=== PATIENT | male | born 1980 | race Caucasian/White ===

== ENCOUNTER 2018-12-19 12:51 | Emergency (ER) | payer OTHER ==
[2018-12-19 12:59] VITALS: RESP 18
--- NOTE | 2018-12-19 14:31 | C.PDOC ---
History Of Present Illness Patient is a 38 year old male with a past medical history of ulcerative colitis s/p resection, who presents to the ED with chest pain. He states hes had diffuse chest pain (sometimes mid sternum, sometimes b/l) intermittently for 3 weeks; he states it feels like a "quick pressure or sharpness" lasting 2-3 seconds, and then resolves on its own. He states he has about 5 episodes per week. He says sometimes the pain is worse with eating at night and when using his vaporizer, but otherwise, he cannot identify what causes his discomfort. He has not tried anything for his symptoms as they resolve on its own. He has had a similar ep isode a few years ago and was given Pepcid. He also says his arm fell asleep yesterday and he was clammy, but that only last a few seconds and then resolved on it own. He denies heavy lifting or trauma. The patient currently denies having chest pain at this time; he also denies palpitations, dyspnea, cough, nausea, vomiting, abdominal pain, fevers, headaches, dizziness, changes in vision, dysuria, hematuria, diarrhea, constipation, leg pain/swelling. PMD: Dr. Thanh Leggett PMHx: UC s/p resection; seasonal allergies SurgHx: colon resection 1999; left wrist fx SocHx: deneis tobacco use; drinks on weekends (6 beers); smokes (vapes) marijuana several times per week. FamHx: FAther- DM, Mother- Afib, Grandmother- lung cancer Allergies: NKDA Medciations: Lotimax ophth solution daily <Gris Moreno - Last Filed: 12/19/18 16:29> <Cyndie Gonsales - Last Filed: 12/19/18 16:22> History Per: Patient History/Exam Limitations: no limitations Current Symptoms Are (Timing): Gone Quality: Sharp, Dull, Pressure Associated Symptoms: Diaphoresis. denies: Nausea, Dyspnea Exacerbating Factors: Other ("can't pinpoint") Alleviating Factors: None (resolves on its own) <Gris Moreno - Last Filed: 12/19/18 16:29> Time Seen by Provider: 12/19/18 13:55 Chief Complaint (Nursing): Chest Pain Past Medical History Vital Signs: Last Vital Signs Temp 98.8 F 12/19/18 12:56 Pulse 76 12/19/18 15:05 Resp 18 12/19/18 12:56 BP 135/82 12/19/18 15:05 Pulse Ox 100 12/19/18 16:19 - [facility] Procedures CL FX REDUC-RADIUS/ULNA (03/02/13) DIPHTHERIA TOXOID ADMIN (03/02/13) OTHER CAST APPLICATION (03/02/13) TETANUS TOXOID ADMINIST (03/02/13) <Cyndie Gonsales - Last Filed: 12/19/18 16:22> Vital Signs: Last Vital Signs Temp 98.8 F 12/19/18 12:56 Pulse 79 12/19/18 12:56 Resp 18 12/19/18 12:56 BP 134/90 12/19/18 12:56 Pulse Ox 100 12/19/18 12:56 - Medical History PMH: HTN - [facility] Procedures CL FX REDUC-RADIUS/ULNA (03/02/13) DIPHTHERIA TOXOID ADMIN (03/02/13) OTHER CAST APPLICATION (03/02/13) TETANUS TOXOID ADMINIST (03/02/13) Family History: Denies: NC, CAD - Social History Hx Tobacco Use: No Hx Alcohol Use: Yes Hx Substance Use: Yes - Immunization History Hx Tetanus Toxoid Vaccination: Yes Hx Influenza Vaccination: Yes Hx Pneumococcal Vaccination: No <Gris Moreno - Last Filed: 12/19/18 16:29> Review Of Systems Constitutional: Negative for: Fever, Chills Eyes: Negative for: Vision Change Cardiovascular: Negative for: Chest Pain, Palpitations, Light Headedness Respiratory: Negative for: Cough, Shortness of Breath, Pleuritic Pain Gastrointestinal: Negative for: Nausea, Vomiting, Abdominal Pain, Diarrhea, Constipation Genitourinary: Negative for: Dysuria, Frequency, Incontinence, Hematuria Neurological: Negative for: Weakness, Numbness, Headache, Dizziness <Gris Moreno - Last Filed: 12/19/18 16:29> Physical Exam - Physical Exam Appears: Non-toxic, No Acute Distress Skin: Normal Color, Warm, Dry Head: Normacephalic Eye(s): bilateral: Normal Inspection, PERRL, EOMI Oral Mucosa: Moist Neck: Normal ROM Chest: Symmetrical, No Tenderness Cardiovascular: Rhythm Regular, No Edema, No Murmur Respiratory: Normal Breath Sounds, No Accessory Muscle Use, No Rales, No Rhonchi, No Stridor Gastrointestinal/Abdominal: Normal Exam, Bowel Sounds, Soft, No Tenderness, No Distention, No Guarding Extremity: Normal ROM, No Tenderness, Pedal Edema (1+), No Calf Tenderness Extremity: Bilateral: Atraumatic, No Pedal Edema, Normal ROM Pulses: Left Dorsalis Pedis: Normal, Right Dorsalis Pedis: Normal Neurological/Psych: Oriented x3, Normal Speech, Normal Cognition, Normal Cranial Nerves <Gris Moreno - Last Filed: 12/19/18 16:29> ED Course And Treatment - Laboratory Results Result Diagrams: 12/19/18 15:15 12/19/18 15:15 Lab Results: Troponin I < 0.0120 ng/mL (0.00-0.120) 12/19/18 15:15 Total Bilirubin 1.9 mg/dL (0.2-1.3) H 12/19/18 15:15 AST 31 U/L (17-59) 12/19/18 15:15 ALT 45 U/L (21-72) 12/19/18 15:15 Alkaline Phosphatase 67 U/L (38-126) 12/19/18 15:15 Total Protein 7.3 g/dL (6.3-8.3) 12/19/18 15:15 Albumin 4.4 g/dL (3.5-5.0) 12/19/18 15:15 Globulin 2.8 gm/dL (2.2-3.9) 12/19/18 15:15 Albumin/Globulin Ratio 1.6 (1.0-2.1) 12/19/18 15:15 <Cyndie Gonsales - Last Filed: 12/19/18 16:22> - Laboratory Results Result Diagrams: 12/19/18 15:15 12/19/18 15:15 O2 Sat by Pulse Oximetry: 100 Progress Note: Plan: CBC, CMP, UDS, RENEE panel, EKG, CXR, and place on electronic device monitor. CXR was negative for acute pathology, EKG was nsr, no ST elevations/depressions, RENEE panel was within normal range. <Gris Moreno - Last Filed: 12/19/18 16:29> Disposition Counseled Patient/Family Regarding: Diagnosis, Need For Followup - Disposition Disposition Time: 16:20 <Cyndie Gonsales - Last Filed: 12/19/18 16:22> <Gris Moreno - Last Filed: 12/19/18 16:29> - Disposition Disposition: HOME/ ROUTINE Condition: STABLE Additional Instructions: Patient instructed to follow up with PMD within 1 week of discharge. Patient may take Pepcid 20mg by mouth daily for discomfort relief as it has helped in the past. If symptoms reoccur or worsen, patient should return to nearest emergency room. Prescriptions: Famotidine [Pepcid] 20 mg PO DAILY #10 tab Instructions: Chest Pain That Is Not Caused by the Heart (DC) Forms: [employer] ([place]an) Print Language: TURKISH - Clinical Impression Clinical Impression: Chest discomfort
--- NOTE | 2018-12-19 14:38 | RAD ---
Date of service: 12/19/2018 HISTORY: Chest pain COMPARISON: Comparison made with prior chest radiograph 06/01/2016 TECHNIQUE: 1 view obtained. FINDINGS: LUNGS: Minor left basilar atelectasis. PLEURA: No significant pleural effusion identified, no pneumothorax apparent. CARDIOVASCULAR: No aortic atherosclerotic calcification present. Normal cardiac size. No pulmonary vascular congestion. OSSEOUS STRUCTURES: No significant abnormalities. VISUALIZED UPPER ABDOMEN: Normal. OTHER FINDINGS: None. IMPRESSION: Minor left basilar atelectasis.
[2018-12-19 15:17] VITALS: BP 135/82
[2018-12-19 15:20] LABS: BASO # 0.1 K/uL (0.0-0.2); BASO % 0.9 % (0.0-2.0); EOS # 0.1 K/uL (0.0-0.7); EOS % 0.6 % (0.0-4.0); HEMOGLOBIN 16.4 g/dL (12.0-18.0); LYMPH # 1.3 K/uL (1.0-4.3); MEAN CELL VOLUME 84.8 fL (80.0-94.0); MEAN CORPUSCULAR HEMOGLOBIN 29.2 pg (27.0-31.0); MEAN CORPUSCULAR HGB CONC 34.5 g/dL (33.0-37.0); MEAN PLATELET VOLUME 7.4 fL (7.2-11.7); MONO # 0.4 K/uL (0.0-0.8); NEUT # 6.9 K/uL (1.8-7.0); NEUT % 78.5 % (50.0-75.0); NRBC % 0.1 % (0.0-2.0); RBC 5.6 Mil/uL (4.40-5.90); RED CELL DISTRIBUTION WIDTH 13.6 % (11.5-14.5); WHITE BLOOD COUNT 8.8 K/uL (4.8-10.8)
[2018-12-19 15:34] LABS: ALB/GLOB RATIO 1.6 (1.0-2.1); ALBUMIN 4.4 g/dL (3.5-5.0); ALT/SGPT 45 U/L (21-72); AST/SGOT 31 U/L (17-59); BLOOD UREA NITROGEN 10 mg/dL (9-20); CALCIUM 9.6 mg/dl (8.6-10.4); GFR NON-AFRICAN AMERICAN > 60
[2018-12-19 15:47] LABS: CK-MB 0.85 ng/mL (0.0-3.38)
[2018-12-19 15:59] LABS: PHENCYCLIDINE, UR NEGATIVE (NEGATIVE)
[2018-12-19 16:00] LABS: BARBITURATES, UR NEGATIVE (NEGATIVE); BENZODIAZEPINES, UR NEGATIVE (NEGATIVE); OPIATES, UR NEGATIVE (NEGATIVE)
[2018-12-19 17:12] VITALS: PULSE 70; TEMP 98.5; O2SAT 97
--- NOTE | 2018-12-21 21:25 | CARD ---
APPROVED REPORT Date of service: 12/19/2018 EKG Measurement Heart [id number] <Conclusion> Normal sinus rhythm Cannot rule out Inferior infarct, age undetermined Abnormal ECG
== END 2018-12-19 17:12 | disposition home or self-care (01) ==
LOC: C.ER 12:51
DX: R07.89 Other chest pain (principal)

== ENCOUNTER 2018-12-26 12:44 | Outpatient (CLI) | payer OTHER | END 2018-12-26 12:45 | disposition home or self-care (01) | LOC: C.LAB 12:44 | DX: Z68.41 Body mass index [BMI] 40.0-44.9, adult (principal) ==